=== PATIENT | female | born 1980 | race Two or more races ===

== ENCOUNTER 2017-10-15 10:26 | Emergency (ER) | payer MEDICAID ==
[~2017-10-15] VITALS: Ht 144.8 cm; Wt 68.0 kg
[2017-10-15 10:29] VITALS: BP 143/84
== END 2017-10-15 11:48 | disposition home or self-care (01) ==
LOC: ER 10:30
DX: B34.9 Viral infection, unspecified (principal); J02.9 Acute pharyngitis, unspecified; E78.00 Pure hypercholesterolemia, unspecified
CPT/HCPCS: 87070; 87077; 87804 ×2; 87880; 99284; A4606; Z7610; 86403-TC; 87400